=== PATIENT | female | born 1985 | race Caucasian/White ===

== ENCOUNTER 2023-08-19 11:04 | Observation (INO) | payer OTHER, SELFPAY ==
[2023-08-19 12:15] LABS: Hematocrit 31.3 % (37.0-47.0); Hemoglobin 10.5 g/dL (12.0-16.0); Mean Corp Hgb Conc. 33.5 g/dL (33.0-37.0); Mean Corpuscular Hgb 30.6 pg (27.0-31.0); Mean Corpuscular Volume 91.3 fL (81.0-99.0); Mean Platelet Volume 10.4 fL (7.4-10.4); Platelet Count 300 10^3/uL (130-400); Red Blood Cell Count 3.43 10^6/uL (4.20-5.40); Red Cell Dist. Width 12.5 % (11.5-14.5); White Blood Cell Count 8.7 10^3/uL (4.8-10.8)
[2023-08-19] MEDS: BRETHINE 250 MCG SC (12:26)
[2023-08-19 14:17] VITALS: BP 108/76; BMI 29.9
== END 2023-08-19 14:15 | disposition home or self-care (01) ==
LOC: LDRP 11:04
PROVIDERS: ADMITTING PHYSICIAN Obstetrics & Gynecology; FAMILY PHYSICIAN Obstetrics & Gynecology
DX: O32.1XX0 Maternal care for breech presentation, not applicable or unspecified (principal); Z3A.37 37 weeks gestation of pregnancy; O99.013 Anemia complicating pregnancy, third trimester; D64.9 Anemia, unspecified
CPT/HCPCS: 59412; 85027; 86850; 86900; 86901; G0378

== ENCOUNTER 2023-08-24 07:35 | Inpatient (IN) | payer OTHER, SELFPAY ==
[2023-08-24 07:45] VITALS: BP 130/84; BMI 30.8
[2023-08-24] MEDS: BICITRA 30 ML PO (08:42)
[2023-08-24] MEDS: TYLENOL 1000 MG PO (08:42)
[2023-08-24 08:45] LABS: Hematocrit 34.4 % (37.0-47.0); Hemoglobin 11.8 g/dL (12.0-16.0); Mean Corp Hgb Conc. 34.3 g/dL (33.0-37.0); Mean Corpuscular Hgb 30.9 pg (27.0-31.0); Mean Corpuscular Volume 90.1 fL (81.0-99.0); Mean Platelet Volume 10.7 fL (7.4-10.4); Platelet Count 300 10^3/uL (130-400); Red Blood Cell Count 3.82 10^6/uL (4.20-5.40); Red Cell Dist. Width 12.3 % (11.5-14.5); White Blood Cell Count 12.7 10^3/uL (4.8-10.8)
[2023-08-24] MEDS: ZITHROMAX INFUSION 250 IV (09:09)
[2023-08-24] MEDS: ANCEF 10 IV (09:09)
--- NOTE | 2023-08-24 09:54 | W.IMMPOSTOP ---
Surgical Immed Post Op Note
-
Primary Surgeon: Mary Mcfarland, DO
Assisting Surgeon: Daksha Wesley, rf technician
Pre-op Diagnosis: IUP at 37+5wks, SROM, early labor, breech
Post-op Diagnosis: Same as above
Procedure Performed: PLTCS
Anesthesia Type: spinal
Specimen / Cultures: cord gases
Estimated Blood Loss: 105ml (QBL)
Complications: none
Operative Findings: normal-appearing uterus, b/l tubes and ovaries. Female infant in the dann breech presentation, Apgars 8/9. Terminal meconium present.
[2023-08-24] MEDS: PITOCIN 30 UNITS/NSS 500 ML IV (10:00)
[2023-08-24 10:06] LABS: Cord ABG Comment CORD BLOOD
[2023-08-24 10:13] LABS: B.E. Cord ABG -0.6 mMOL/L; HCO3 Cord ABG 24.9 mmol/L; O2 Saturation % Cord ABG 43.9 %; PCO2 Cord ABG 43 mmHg; PO2 Cord ABG 21 mmHg; pH Cord ABG 7.37
[2023-08-24] MEDS: REGLAN 10 MG IV (11:07)
[2023-08-24] MEDS: MORPHINE SULFATE 2 MG IV ×2 (11:08→13:24)
[2023-08-24] MEDS: TORADOL 15 MG IV ×2 (14:16→20:31)
[2023-08-24] MEDS: ROXICODONE 5 MG PO ×2 (18:13→22:19)
[2023-08-24] MEDS: MYLICON 80 MG PO (23:10)
[2023-08-24] MEDS: TYLENOL 650 MG PO (23:32)
[2023-08-25] MEDS: TORADOL 15 MG IV ×2 (01:52→08:23)
[2023-08-25] MEDS: ROXICODONE 5 MG PO (02:19)
[2023-08-25] MEDS: TYLENOL 650 MG PO ×2 (04:18→15:06)
[2023-08-25 04:49] LABS: Hematocrit 26.3 % (37.0-47.0); Hemoglobin 8.9 g/dL (12.0-16.0); Mean Corp Hgb Conc. 33.8 g/dL (33.0-37.0); Mean Corpuscular Hgb 30.9 pg (27.0-31.0); Mean Corpuscular Volume 91.3 fL (81.0-99.0); Mean Platelet Volume 10.7 fL (7.4-10.4); Platelet Count 253 10^3/uL (130-400); Red Blood Cell Count 2.88 10^6/uL (4.20-5.40); Red Cell Dist. Width 12.4 % (11.5-14.5); White Blood Cell Count 14.8 10^3/uL (4.8-10.8)
[2023-08-25] MEDS: ROXICODONE 10 MG PO ×4 (06:33→22:18)
[2023-08-25] MEDS: FEOSOL 325 MG PO (08:23)
[2023-08-25] MEDS: SENOKOT-S 1 TABLET PO (08:23)
[2023-08-25] MEDS: PEPCID 20 MG PO (08:23)
[2023-08-25] MEDS: PRENATAL PLUS 1 TABLET PO (08:23)
[2023-08-25] MEDS: MYLICON 80 MG PO ×2 (11:53→20:26)
[2023-08-25] MEDS: MOTRIN 600 MG PO ×2 (15:07→22:19)
--- NOTE | 2023-08-25 18:54 | W.PN.ANS.POP ---
Anesthesia Post Operative
- Anesthesia Post Op Note
Vital Signs Stable-See Nursing Note: Yes
Airway Patent: Yes
Adequate Pain Control: Yes
Change in Mental Status: No
Current Postoperative Nausea & Vomiting: No
Anesthesia Complications: No
Unplanned Admission: No
Post Op Hydration Adequate: Yes
[2023-08-26] MEDS: ROXICODONE 10 MG PO ×2 (03:43→08:02)
[2023-08-26] MEDS: MOTRIN 600 MG PO (05:06)
[2023-08-26] MEDS: TYLENOL 650 MG PO (05:06)
[2023-08-26] MEDS: MYLICON 80 MG PO (08:02)
[2023-08-26] MEDS: PRENATAL PLUS 1 TABLET PO (08:02)
[2023-08-26] MEDS: SENOKOT-S 1 TABLET PO (08:02)
[2023-08-26] MEDS: FEOSOL 325 MG PO (08:02)
[2023-08-26] MEDS: PEPCID 20 MG PO (08:02)
--- NOTE | 2023-08-28 12:54 | W.DS.TRANS ---
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
-
Discharge Instructions:
Discharge Diagnosis/Procedures cs
Instructions:
Stand-Alone Forms: LDRP Delivery
Changes to Home Medications: No
Discharge Medications:
DC Medications w/original date entered in [employer]
Pepcid 20 mg PO DAILY Gastrointestinal Issue 08/24/23
Vitamin 1 tab PO DAILY Supplement 08/24/23
ibuprofen 600 mg tablet 600 mg PO Q6HPRN PRN cramps/pain #90 tabs 08/26/23
oxycodone 5 mg tablet 5 mg PO Q4HPRN PRN moderate pain 6-8/10 #12 tabs 08/26/23
Home Medication Changes
Pending Results: No
Total time spent discharging patient (in min): 20
[2023-08-28 14:27] LABS: Syphilis/T. pallidum Ab Reflex Negative (Negative)
== END 2023-08-26 10:57 | disposition home or self-care (01) | DRG 788 ==
LOC: LDRP 07:35
PROVIDERS: Obstetrics & Gynecology; ADMITTING PHYSICIAN Obstetrics & Gynecology
PROC: 10D00Z1 Extraction of Products of Conception, Low, Open Approach (ICD-10-PCS; 2023-08-24)
DX: O32.1XX0 Maternal care for breech presentation, not applicable or unspecified (principal); Z3A.37 37 weeks gestation of pregnancy; Z37.0 Single live birth; O77.0 Labor and delivery complicated by meconium in amniotic fluid; O76 Abnormality in fetal heart rate and rhythm complicating labor and delivery; O99.62 Diseases of the digestive system complicating childbirth; K21.9 Gastro-esophageal reflux disease without esophagitis
CPT/HCPCS: 82803; 85027; 86780; 86850; 86900; 86901